=== PATIENT | female | born 1990 | race Caucasian/White ===

== ENCOUNTER 2020-11-22 14:48 | Emergency (ER) | payer BC, MEDICARE, SELFPAY ==
[2020-11-22 15:00] VITALS: BP 149/73; PULSE 98; RESP 20; TEMP 36.8; O2SAT 98
--- NOTE | 2020-11-22 15:19 | ED.GENADULT ---
HPI - General Adult General Chief complaint: Urogenital-Female Stated complaint: rash on privates Time Seen by Provider: 11/22/20 15:19 Source: patient and RN notes reviewed Mode of arrival: ambulatory Limitations: no limitations History of Present Illness HPI narrative: 30-year-old female presents with complaints of rash to genital area for the past 7 days. Natalie reports increase in symptoms over the past 48 hours. Desitin cream, hydrocortisone cream, and baby powder with some relief. Denies new changes in personal hygiene products or laundry detergent. No new foods or medications. No swelling, burning, bleeding, or drainage. Denies fever, chills, headaches, weakness, fatigue, myalgia, facial swelling, or tongue swelling. Denies chest pain or dyspnea. Denies nausea, vomiting, and abdominal pain. Tolerating po intake well. Remains active. The patient reports she have was diagnosed with COVID-19 in June 2020. The patient reports she received 2 Pfizer COVID-19 vaccines. The patient reports she is not waiting for the results of a COVID-19 lab test. The patient reports she do not have a new or worsening cough. The patient reports she do not have any rhinorrhea, congestion, sore throat, loss of taste or smell, and diarrhea. Denies recent traveling. Denies concerns for COVID-19 or exposures been home with limited outdoor exposure except for essential household needs, work, and return home. At this time, patient is not suspected of having COVID-19. Some parts of this dictation were generated by voice recognition software and may contain typographical and/or grammatical inaccuracies. Related Data Home Medications Medication Instructions Recorded Confirmed calcitriol 11/22/20 cyclobenzaprine mg 11/22/20 escitalopram oxalate mg 11/22/20 levothyroxine 11/22/20 naproxen 11/22/20 testosterone cypionate mg 11/22/20 tizanidine mg 11/22/20 Allergies Allergy/AdvReac Type Severity Reaction Status Date / Time Sulfa (Sulfonamide Allergy Mild RASH Verified 11/22/20 14:52 Antibiotics) Review of Systems Review of Systems: Narrative: CONSTITUTIONAL: Denies fever, chills, sweats. EYES: Denies visual changes, redness, discharge. ENT: Denies rhinorrhea, congestion, sore throat, otalgia. CARDIOVASCULAR: Denies chest pain, palpitations, edema. RESPIRATORY: Denies dyspnea, wheezing, cough. GASTROINTESTINAL: Denies abdominal pain, nausea, vomiting, diarrhea. GENITOURINARY: Denies dysuria, hematuria, abnormal discharge SKIN: Complains of rash to genital area. Denies drainage. MUSCULOSKELETAL: Denies acute back pain, joint pain, or myalgia. NEUROLOGIC: Denies numbness or focal weakness. PSYCHIATRIC: Denies anxiety or depression. All other systems reviewed & are unremarkable except as noted in HPI and below. 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 In the process of transitioning into a male Lower extremity surgery planned Right leg due congenital problem Surgical History Surgical History (Updated 11/22/20 @ 15:36 by FERNANDO Brito) History of hand surgery Little finger Family History Family History (Updated 11/22/20 @ 15:38 by FERNANDO Brito) Father Cancer Heart disease Mother Alive and well Social History Social History (Updated 11/22/20 @ 15:39 by FERNANDO Brito) Smoking status: Current every day smoker Tobacco type: smokeless tobacco Smokeless tobacco user: chewing tobacco Second hand tobacco smoke exposure: No Alcohol intake: current Substance use: never Living arrangements: with family Occupation/Education: occupation Gender identity (if verbalized by the patient): Transgender Female Sexual Orientation (if Verbalized by the Patient): Lesbian, Gates, or Homosex
== END 2020-11-22 15:50 | disposition home or self-care (01) ==
PROVIDERS: Emergency Provider Nurse Practitioner Family; PCP Family Medicine
DX: R21 Rash and other nonspecific skin eruption (principal); F17.220 Nicotine dependence, chewing tobacco, uncomplicated; Z86.16 Personal history of COVID-19
CPT/HCPCS: 81003; 87086; 87088; 99213; G0463

== ENCOUNTER 2021-07-17 12:01 | Emergency (ER) | payer BC, MEDICARE, SELFPAY ==
[2021-07-17 12:06] VITALS: BP 136/73; PULSE 87; RESP 16; TEMP 37.2; O2SAT 98
--- NOTE | 2021-07-17 12:34 | ED.GENADULT ---
HPI - General Adult General Chief complaint: Upper Respiratory Infection Stated complaint: cough and sore throat Time Seen by Provider: 07/17/21 12:34 Source: patient Mode of arrival: ambulatory Limitations: no limitations History of Present Illness HPI narrative: 31-year-old female that is transitioning to a male presents to the [facility] with complaints of upper respiratory symptoms x3 to 4 days. Patient states sore throat, congestion and cough. Fully vaccinated against Covid and influenza. Patient states running a fever today. States they have been taking [id number] cold and flu medication for symptoms. Related Data Home Medications Medication Instructions Recorded Confirmed calcitriol 0.5 mcg PO DAILY 11/22/20 07/17/21 levothyroxine 100 mcg PO DAILY 11/22/20 07/17/21 naproxen 500 mg PO BID PRN 11/22/20 07/17/21 testosterone cypionate See Rx Instructions .ROUTE .COMPLEX 11/22/20 07/17/21 escitalopram oxalate 20 mg PO DAILY 07/17/21 07/17/21 levothyroxine 112 mcg PO DAILY 07/17/21 07/17/21 Allergies Allergy/AdvReac Type Severity Reaction Status Date / Time Sulfa (Sulfonamide Allergy Mild RASH Verified 07/17/21 12:24 Antibiotics) Review of Systems Review of Systems: CONSTITUTIONAL: Positive subjective low-grade fever, chills, or sweats. EYES: Denies visual changes, redness, or discharge. ENT: Positive rhinorrhea, congestion, sore throat, denies otalgia. CARDIOVASCULAR: Denies chest pain, palpitations, or edema. RESPIRATORY: Positive cough or dyspnea. GASTROINTESTINAL: Denies abdominal pain, nausea, vomiting, or diarrhea. GENITOURINARY: Denies dysuria or hematuria. SKIN: Denies rash or itching. MUSCULOSKELETAL: Denies back pain, joint pain, or myalgia. NEUROLOGIC: Denies headache, numbness, or weakness. PSYCHIATRIC: Denies anxiety or depression. 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 In the process of transitioning into a male Lower extremity surgery planned Right leg due congenital problem Surgical History Surgical History History of hand surgery Little finger Family History Family History Father Cancer Heart disease Mother Alive and well Social History Social History Smoking status: Current every day smoker Tobacco type: smokeless tobacco Smokeless tobacco user: chewing tobacco Second hand tobacco smoke exposure: No Alcohol intake: current Substance use: never Gender identity (if verbalized by the patient): Transgender Female Sexual Orientation (if Verbalized by the Patient): Lesbian, Gates, or Homosexual Comments At the time of my signature I agree with nursing past medical history, surgical, social, and family history. There is no relevant family history pertinent to the presenting complaint. Exam Narrative: GENERAL: Well-appearing, well-nourished, and in no acute distress. HEAD: Normocephalic, atraumatic. EYES: PERRLA and EOMI. ENT: Nares clear, no rhinorrhea or epistaxis. Mucous membranes moist. NECK: Supple. No lymphadenopathy CHEST: Clear to auscultation. No respiratory distress. HEART: Regular rate and rhythm. No murmur heard. Normal peripheral pulses. ABDOMEN: Soft, nontender, nondistended, normal active bowel sounds. EXTREMITIES: Normal range of motion. No edema. SKIN: Warm, dry, no rash. NEURO: No focal deficits. Alert and oriented x3. Course Reevaluation(s) Reevaluation #1: Reevaluated patient notified them that they are positive for strep. We will discharge home with antibiotics for strep infection. Date: 07/17/21 Time: 13:04 Vital Signs Vital signs: Vital Signs Temperature 37.2 C 07/17/21 1
== END 2021-07-17 13:10 | disposition home or self-care (01) ==
PROVIDERS: Emergency Provider Nurse Practitioner Family; PCP Family Medicine
DX: J02.0 Streptococcal pharyngitis (principal); Z20.822 Contact with and (suspected) exposure to COVID-19; F17.220 Nicotine dependence, chewing tobacco, uncomplicated; Z86.16 Personal history of COVID-19
CPT/HCPCS: 87426; 87804; 87880; 99213; C9803; G0463

== ENCOUNTER 2021-07-22 09:11 | Emergency (ER) | payer BC, MEDICARE, SELFPAY ==
[2021-07-22 09:25] VITALS: BP 127/60; PULSE 77; RESP 20; TEMP 36.4; O2SAT 100
--- NOTE | 2021-07-22 09:59 | ED.URI ---
HPI - URI/Sore Throat General Chief Complaint: Upper Respiratory Infection Stated Complaint: cough Time Seen by Provider: 07/22/21 09:59 Source: patient, RN notes reviewed and old records reviewed Mode of arrival: ambulatory Limitations: no limitations History of Present Illness HPI Narrative: 31-year-old female transitioning to male presents to the [facility] with wanting to be checked and make sure it is okay to return to work. Patient was seen and evaluated on July 17, 5 days ago and diagnosed with strep throat. Reports taking the antibiotics as prescribed. Reports an continued cough and runny nose. Denies it being any worse, otherwise feeling better. Denies chest pain or abdominal pain. Reports no fevers. No nausea vomiting or diarrhea. Related Data Home Medications Medication Instructions Recorded Confirmed calcitriol 0.5 mcg PO DAILY 11/22/20 07/17/21 levothyroxine 100 mcg PO DAILY 11/22/20 07/17/21 naproxen 500 mg PO BID PRN 11/22/20 07/17/21 testosterone cypionate See Rx Instructions .ROUTE .COMPLEX 11/22/20 07/17/21 escitalopram oxalate 20 mg PO DAILY 07/17/21 07/17/21 levothyroxine 112 mcg PO DAILY 07/17/21 07/17/21 Allergies Allergy/AdvReac Type Severity Reaction Status Date / Time Sulfa (Sulfonamide Allergy Mild RASH Verified 07/17/21 12:24 Antibiotics) Review of Systems Review of Systems: All systems reviewed & are unremarkable except as noted in HPI and below Constitutional: Constitutional: Reports no additional constitutional complaints, Denies chills and Denies fever(s) Eyes: Eyes: Reports no additional eye complaints ENT: Reports as per HPI and Reports nasal congestion Cardiovascular: Cardiovascular: Reports no additional cardiovascular complaints and Denies chest pain Respiratory: Respiratory: Reports as per HPI, Denies chest congestion, Reports cough, Denies dyspnea and Denies wheezing Musculoskeletal: Musculoskeletal: Reports no additional musculoskeletal complaints Integumentary/Breasts: Skin/Breast: Reports system reviewed and no additional complaints, except as docu Neurologic: Reports system reviewed and no additional complaints, except as documented Psychiatric: Psychiatric: Reports no additional psychiatric complaints Allergic/Immunologic: Allergic/Immunologic: Reports no additional allergic/immunologic complaints PMFSH Past Medical History Medical History Back pain with history of spinal surgery Chewing tobacco use COVID-25 June 2020 Gender identity disorder in adult In the process of transitioning into a male Lower extremity surgery planned Right leg due congenital problem Surgical History Surgical History History of hand surgery Little finger Family History Family History Father Cancer Heart disease Mother Alive and well Social History Social History Smoking status: Current every day smoker Tobacco type: smokeless tobacco Smokeless tobacco user: chewing tobacco Second hand tobacco smoke exposure: No Alcohol intake: current Substance use: never Gender identity (if verbalized by the patient): Transgender Female Sexual Orientation (if Verbalized by the Patient): Lesbian, Gates, or Homosexual Comments At the time of my signature, I reviewed and agree with the nursing past medical, surgical, social, and family history. There is no relevant family history pertinent to the patient complaint. Exam Const: General: healthy appearing, no acute distress and alert Nutritional Appearance: well nourished Orientation/consciousness: patient oriented x3 Limitations: no limitations HENMT: Head: normal to inspection and atraumatic Ears: external ears normal, TM's normal bilaterally and EAC's normal General nose exam: Normal nasal muco
== END 2021-07-22 10:22 | disposition home or self-care (01) ==
PROVIDERS: Emergency Provider Nurse Practitioner; PCP Family Medicine
DX: J06.9 Acute upper respiratory infection, unspecified (principal); F17.210 Nicotine dependence, cigarettes, uncomplicated
CPT/HCPCS: 99211; G0463

== ENCOUNTER 2022-06-04 12:01 | Emergency (ER) | payer MEDICARE, SELFPAY ==
[2022-06-04 12:38] VITALS: BP 115/66; PULSE 90; RESP 20; TEMP 36.9; O2SAT 100
--- NOTE | 2022-06-04 14:38 | ED.URI ---
HPI - URI/Sore Throat General Chief Complaint: Upper Respiratory Infection Stated Complaint: Cough/Vomiting Time Seen by Provider: 06/04/22 14:38 Source: patient, RN notes reviewed and old records reviewed Mode of arrival: ambulatory Limitations: no limitations History of Present Illness HPI Narrative: 31 year old presents to [facility] with complaints of cough, some fevers up to 100.8F, sore throat for the past 3 days taking DayQuil and NyQuil for symptoms. Patient reports throat is sore especially with swallowing rates pain 4/10.Patient report is able to tolerate fluids by mouth,appetite is decreased. MD elicited complaint: fever, cough, sore throat and rhinorrhea Onset (ago): day(s) (3) Pain scale (0-10): 4 Able to tolerate fluids by mouth: Yes Treatments prior to arrival: cold medicine Related Data Home Medications Medication Instructions Recorded Confirmed calcitriol 0.5 mcg capsule 0.5 mcg PO DAILY 11/22/20 06/04/22 levothyroxine 100 mcg tablet 100 mcg PO DAILY 11/22/20 07/17/21 naproxen 500 mg tablet 500 mg PO BID PRN Pain 11/22/20 07/17/21 testosterone cypionate 200 mg/mL 200 mg IM [id number] 11/22/20 06/04/22 intramuscular oil escitalopram oxalate 20 mg tablet 20 mg PO DAILY 07/17/21 07/17/21 levothyroxine 112 mcg tablet 112 mcg PO DAILY 07/17/21 07/17/21 aspirin 81 mg tablet,delayed 81 mg PO DAILY 06/04/22 06/04/22 release magnesium oxide 400 mg (241.3 mg 400 mg PO DAILY 06/04/22 06/04/22 magnesium) tablet mirtazapine 15 mg tablet 15 mg PO QHS 06/04/22 06/04/22 topiramate 100 mg tablet 100 mg PO DAILY 06/04/22 06/04/22 Allergies Allergy/AdvReac Type Severity Reaction Status Date / Time Sulfa (Sulfonamide Allergy Mild RASH Verified 06/04/22 12:45 Antibiotics) Review of Systems Review of Systems: CONSTITUTIONAL: malaise, chills, sweats, or fever. EYES: Denies visual changes, redness, or discharge. ENT: Reports rhinorrhea, congestion, sinus pain, otalgia and sore throat. CARDIOVASCULAR: Denies chest pain, palpitations, or edema. RESPIRATORY: Reports cough.? Denies dyspnea. GASTROINTESTINAL: Denies abdominal pain, nausea, vomiting, diarrhea SKIN: Denies rash or itching. MUSCULOSKELETAL: Denies myalgia. NEUROLOGIC: Denies headache. All systems reviewed & are unremarkable except as noted in HPI and below PMFSH Past Medical History Medical History Back pain with history of spinal surgery Chewing tobacco use COVID-25 June 2020 Gender identity disorder in adult In the process of transitioning into a male Lower extremity surgery planned Right leg due congenital problem Surgical History Surgical History History of hand surgery Little finger Family History Family History Father Cancer Heart disease Mother Alive and well Social History Social History Smoking status: Current every day smoker Tobacco type: smokeless tobacco Smokeless tobacco user: chewing tobacco Second hand tobacco smoke exposure: No Alcohol intake: current Substance use: never Gender identity (if verbalized by the patient): Transgender Female Sexual Orientation (if Verbalized by the Patient): Lesbian, Gates, or Homosexual Comments At time of signature, agree with nursing past medical, surgical, social and family history. There is no relevant family history pertinent to the presenting complaint Exam Narrative: GENERAL: Well-appearing, well-nourished, and in no acute distress. HEAD: Normocephalic EYES: PERRLA, conjunctivae clear , ENT: Nares clear, turbinates edematous and erythematous, clear discharge. Mucous membranes moist. TM pearly camara with dull light reflex bilaterally; no tragal tenderness. Oropharynx erythematous without lesions. Tonsils
== END 2022-06-04 15:00 | disposition home or self-care (01) ==
PROVIDERS: Emergency Provider Registered Nurse; PCP Family Medicine
DX: J03.90 Acute tonsillitis, unspecified (principal); R05.1 Acute cough; F17.220 Nicotine dependence, chewing tobacco, uncomplicated; Z86.16 Personal history of COVID-19
CPT/HCPCS: 87081; 87880; 99213; G0463